=== PATIENT | male | born 1950 | race Caucasian/White ===

== ENCOUNTER → 2018-07-06 07:35 | Outpatient (CLI) | payer OTHER, SELFPAY ==
[2018-07-06 08:30] LABS: Add Manual Diff / Slide Review NO; Basophils Percent Auto 0.6 % (0-2); Eosinophils Percent Auto 5.4 % (2-4); Hematocrit 42.7 % (41-53); Hemoglobin 14.6 g/dL (13.5-17.5); Lymphocytes Percent Auto 24.6 % (25-40); Mean Corpuscular HGB Conc 34.1 % (30-36); Mean Corpuscular Hemoglobin 29.4 PG (26-34); Mean Corpuscular Volume 86.3 fL (80-100); Monocytes Percent Auto 7.9 % (3-14); Neutrophils Absolute Auto 4800 /uL (3000-5900); Neutrophils Percent Auto 61.5 % (50-75); Platelet Count 260 X10^3/uL (150-400); Red Blood Cell Count 4.95 X10^6/uL (4.5-5.9); Red Cell Distribution Width 13.5 % (11.6-14.8); White Blood Cell Count 7.8 X10^3/uL (4.5-11.0)
[2018-07-06 08:38] LABS: Alanine Aminotransferase 25 IU/L (21-72); Albumin 4.3 g/dL (3.5-5.0); Albumin Globulin Ratio 1.5 (1.0-2.8); Alkaline Phosphatase 25 U/L (38-126); Aspartate Aminotransferase 19 IU/L (17-59); BUN Creatinine Ratio 17.3 (6-22); Bilirubin Total 0.5 mg/dL (0.2-1.3); Blood Urea Nitrogen 19 mg/dL (9-20); Carbon Dioxide 27 mmol/L (22-32); Chloride 103 mmol/L (98-107); Cholesterol 163 mg/dL (140-199); Estimated Glomerular Filt Rate > 60.0 mL/min (>60); Globulin 2.9 g/dL (1.7-4.1); Glucose 90 mg/dL (80-110); HDL Cholesterol 49 mg/dL (40-60); HEMOLYSIS < 15 (0-50); LDL Cholesterol Calculated 102 mg/dL (<100); Potassium 4.3 mmol/L (3.4-5.1); Sodium 142 mmol/L (137-145); Total Protein 7.2 g/dL (6.3-8.2); Triglycerides 61 mg/dL (35-150)
[2018-07-06 10:06] LABS: TSH w/ Reflex to FT4 3.75 uIU/mL (0.47-4.68)
== END ==
PROVIDERS: PCP Internal Medicine; Visit Provider Internal Medicine
DX: E78.00 Pure hypercholesterolemia, unspecified (principal); I10 Essential (primary) hypertension; E03.9 Hypothyroidism, unspecified; K21.9 Gastro-esophageal reflux disease without esophagitis
CPT/HCPCS: 36415; 80053; 80061; 84153; 84443; 85025

== ENCOUNTER → 2019-02-04 08:01 | Outpatient (CLI) | payer OTHER, SELFPAY ==
[2019-02-04 08:58] LABS: Add Manual Diff / Slide Review NO; Basophils Absolute Auto 100 /uL (0-100); Eosinophils Absolute Auto 400 /uL (0-450); Eosinophils Percent Auto 5.6 % (2-4); Hematocrit 40.8 % (41-53); Lymphocytes Absolute Auto 1800 /uL (1100-4500); Lymphocytes Percent Auto 23.6 % (25-40); Mean Corpuscular HGB Conc 34.4 % (30-36); Mean Corpuscular Volume 87.1 fL (80-100); Monocytes Absolute Auto 600 /uL (0-900); Monocytes Percent Auto 7.7 % (3-14); Neutrophils Absolute Auto 4700 /uL (1500-7000); Neutrophils Percent Auto 62.1 % (50-75); Platelet Count 250 X10^3/uL (150-400); Red Blood Cell Count 4.69 X10^6/uL (4.5-5.9); White Blood Cell Count 7.6 X10^3/uL (4.5-11.0)
[2019-02-04 09:29] LABS: Alanine Aminotransferase 14 IU/L (21-72); Albumin 4.1 g/dL (3.5-5.0); Albumin Globulin Ratio 1.3 (1.0-2.8); Alkaline Phosphatase 22 U/L (38-126); Aspartate Aminotransferase 19 IU/L (17-59); Bilirubin Total 0.5 mg/dL (0.2-1.3); Blood Urea Nitrogen 19 mg/dL (9-20); Calcium 9.1 mg/dL (8.4-10.2); Carbon Dioxide 26 mmol/L (22-32); Chloride 108 mmol/L (98-107); Cholesterol 168 mg/dL (140-199); Estimated Glomerular Filt Rate > 60.0 mL/min (>60); Globulin 3.1 g/dL (1.7-4.1); Glucose 93 mg/dL (80-110); HDL Cholesterol 50 mg/dL (40-60); HEMOLYSIS < 15 (0-50); LDL Cholesterol Calculated 105 mg/dL (<100); Potassium 4.5 mmol/L (3.4-5.1); Sodium 141 mmol/L (137-145); Total Protein 7.2 g/dL (6.3-8.2); Triglycerides 65 mg/dL (35-150)
[2019-02-04 09:46] LABS: Vitamin D 25 Hydroxy (D3) 70.8 ng/mL (30.0-100.0)
[2019-02-04 10:01] LABS: TSH w/ Reflex to FT4 3.73 uIU/mL (0.47-4.68)
[2019-02-04 10:21] LABS: Hep C Virus Ab w/Reflex Quant NEGATIVE s/c (NEGATIVE)
== END ==
PROVIDERS: PCP Internal Medicine; Visit Provider Internal Medicine
DX: E78.00 Pure hypercholesterolemia, unspecified (principal); I10 Essential (primary) hypertension; Z00.01 Encounter for general adult medical examination with abnormal findings
CPT/HCPCS: 36415; 80053; 80061; 82306; 84443; 85025; 86803; G0103

== ENCOUNTER 2019-03-28 09:00 | Outpatient (RCR) | payer OTHER, SELFPAY ==
--- NOTE | 2019-02-07 11:41 | PT.OIE ---
Current Diagnoses Lateral epicondylitis, unspecified elbow (02/07/19) Provider Visit Care Team Role Provider Type Angel Saba MD Attending Provider Physician Primary Care Provider Specialty: Internal Medicine Address: [address] [place] [address], [facility] Email: Physical Therapy Initial Evaluation PT-OP-A Visit Information Start: 02/07/19 07:23 Freq: Status: Active Protocol: Document 02/07/19 07:30 AMB (Rec: 02/07/19 08:46 AMB [email or web address]) Out-Patient Physical Therapy Visit Information Visit Information Visit Type Initial Evaluation Visit Start Time 07:30 Visit Stop Time 08:15 Total Visit Minutes 45 Visit Number 1 PT-OP-B Current Condition Start: 02/07/19 07:23 Freq: Status: Active Protocol: Document 02/07/19 07:30 AMB (Rec: 02/07/19 08:46 AMB [email or web address]) Current Condition History of Current Condition Onset Date a few months Current Complaints R elbow/forearm pain especially with using mouse History of Current Condition Clarence reports he originally noticed pain in his forearm and elbow while at work at his sit stand desk. He now has a vertical mouse which is helping, but still has discomfort. He has been using a brace at work. Prior Functional Status Baseline Function- ADL's Independent Baseline Function- Mobility Independent Current Functional Impairments (Reported) Functional Limitations- ADL's pain with working and gripping activities Personal Factors Other Personal Factors That May Effect Previous frozen shoulder on Therapy/Recovery the left PT-OP-C Subjective Start: 02/07/19 07:23 Freq: Status: Active Protocol: Document 02/07/19 07:30 AMB (Rec: 02/07/19 08:46 AMB [email or web address]) Patient Questionnaires Quick Dash- Upper Extremity Quick Dash UE Score 23 Quick Dash UE Impairment 20 to 39% Impaired (Score 20- 39) OP-PT Pain Assessment Location Right Elbow Pain Location Details forearm and lateral elbow Intensity 2 Scale Used Numeric (1 - 10) PT-OP-F Manual Assessment Start: 02/07/19 07:23 Freq: Status: Active Protocol: Document 02/07/19 08:46 AMB (Rec: 02/07/19 08:59 AMB [email or web address]) Manual Assessments Soft Tissue Assessment Soft Tissue Mobility Assessment Tenderness over wrist exetensors PT-OP-J Posture/Palpation/Skin Start: 02/07/19 07:23 Freq: Status: Active Protocol: Document 02/07/19 08:46 AMB (Rec: 02/07/19 08:59 AMB [email or web address]) Posture Evaluation Comments Posture Comments forward shoulders PT-OP-K Range of Motion Start: 02/07/19 07:23 Freq: Status: Active Protocol: Document 02/07/19 08:46 AMB (Rec: 02/07/19 08:59 AMB [email or web address]) Elbow/Forearm Range of Motion Elbow/Forearm Right Passive ROM Testing Position Sitting Elbow Flexion (degrees) 140 Elbow Extension (degrees) 0 Elbow/Forearm ROM Limitations Comments Pain from 0-5 degrees of flexion Wrist Goniometric Range of Motion Wrist Right Flexion Active (degrees) 55 Extension Active (degrees) 50 Ulnar Deviation Active (degrees) 30 Radial Deviation Active (degrees) 20 Left Flexion Active (degrees) 55 Extension Active (degrees) 55 Ulnar Deviation Active (degrees) 30 Radial Deviation Active (degrees) 25 PT-OP-L Special Tests Start: 02/07/19 07:23 Freq: Status: Active Protocol: Document 02/07/19 08:46 AMB (Rec: 02/07/19 08:59 AMB [email or web address]) Special Tests Wrist/Hand Special Tests Medial Epicondylitis Test Results negative Lateral Epicondylitis Extended Test Results positive on R PT-OP-M Strength Start: 02/07/19 07:23 Freq: Status: Active Protocol: Document 02/07/19 08:46 AMB (Rec: 02/07/19 08:59 AMB [email or web address]) Elbow/Forearm Strength Elbow and Forearm Manual Muscle Testing Right Flexion (C6) 4+ Good+ Extension (C7) 5 Normal Pronation 4 Good Supination 4 Good Wrist Strength Wrist Manual Muscle Testing Right Flexion (C7) 4 Good Extension (C6) 3+ Fair+ Ulnar Deviation 4+ Good+ Radial Deviation 4+ Good+ Left Flexion (C7) 4+ Good+ Extension (C6) 4+ Good+ Ulnar Deviation 4+ Good+ Radial Deviation 4+ Good+ PT-OP-Q Treatments Start: 02/07/19 07:23 Freq: Status: Active Protocol: Document 02/07/19 08:46 AMB (Rec: 02/07/19 08:59 AMB [email or web address]) Therapeutic Exercises Sitting Exercises 1 Sitting Exercise Name wrist extensor stretch, straight elbow gentle Reps/Minutes 30x2 PT-OP-R Modalities Start: 02/07/19 07:23 Freq: Status: Active Protocol: Document 02/07/19 08:46 AMB (Rec: 02/07/19 08:59 AMB [email or web address]) Hot Pack/Cold Pack Treatment Ice Massage Location R wrist extensors/ lateral epicondyle Patient Position Sitting Treatment Duration (minutes) 5 Cold Pack Location R forearm Patient Position Sitting Treatment Duration (minutes) 10 PT-OP-T Assessment and Plan Start: 02/07/19 07:23 Freq: Status: Active Protocol: Document 02/07/19 07:30 AMB (Rec: 02/07/19 11:40 AMB [email or web address]) Physical Therapy Assessment Rehab Potential Rehabilitation Potential Good Evaluation Complexity Number of Personal Factors/Comorbidities 1-2 Number of Body Systems Impaired 1-2 Clinical Presentation at Evaluation Stable Impairments Impairments Activity Tolerance Pain Posture ROM Soft Tissue Mobility Strength Goals Two Impairment activity tolerance Short Term Goal (STG) Clarence will use his computer with good mechanics and ergonomic setup for 1 hour without an increase in forearm pain. STG Duration 4 weeks One Impairment strength Short Term Goal (STG) Clarence will improve his wrist strength to 4+/5 in all planes STG Duration 4 weeks Mcc Goal (LTG) Clarence will improve his strength so he can open a jar without elbow/forearm pain. LTG Duration 8 weeks Assessment Summary Assessment Clarence attends physical therapy due to lateral epicondylitis that flared up per his report of repetitive strain using his mouse at work. He has made some changes to his workstation, and was educated in further changes today. He denies any numbness tingling/ cervical symptoms, and has point specific pain to the lateral epicondyle and tightness and soreness over the wrist extensors, with weakness with wrist extension. He will benefit from physical therapy to address the above impairments. Physical Therapy Plan Frequency and Duration Frequency of Treatment 2x/Week Duration of Treatment 8 weeks Plan of Care Start Date 02/07/19 Plan of Care End Date 04/04/19 Therapeutic Interventions Therapeutic Interventions Aquatic Therapy Home Exercise Program Joint Mobilizations Manual Therapy Neuromuscular Re-education Self-Care/Home Management Therapeutic Activities Therapeutic Exercises Modalities Cold Pack/Ice Massage Electric Stimulation Iontophoresis Ultrasound Other Therapeutic Interventions iontophoresis with dexamethasone Next Visit Focus/Plan Next Note Type Treatment Note Next Visit Plan Manual therapy to improve wrist extensor flexibility, further education in workplace and home office setup to avoid repetitive strain, begin gentle forearm strengthening as tolerated, ice at end.
--- NOTE | 2019-02-07 11:45 | PT.OPPOC ---
Current Diagnoses Lateral epicondylitis, unspecified elbow (02/07/19) Provider Visit Care Team Role Provider Type Angel Saba MD Attending Provider Physician Primary Care Provider Specialty: Internal Medicine Address: [address] [place] [address], [id number] Email: Plan Of Care PT-OP-T Assessment and Plan Start: 02/07/19 07:23 Freq: Status: Active Protocol: Document 02/07/19 07:30 AMB (Rec: 02/07/19 11:40 AMB [email or web address]) Physical Therapy Assessment Rehab Potential Rehabilitation Potential Good Evaluation Complexity Number of Personal Factors/Comorbidities 1-2 Number of Body Systems Impaired 1-2 Clinical Presentation at Evaluation Stable Impairments Impairments Activity Tolerance Pain Posture ROM Soft Tissue Mobility Strength Goals Two Impairment activity tolerance Short Term Goal (STG) Clarence will use his computer with good mechanics and ergonomic setup for 1 hour without an increase in forearm pain. STG Duration 4 weeks One Impairment strength Short Term Goal (STG) Clarence will improve his wrist strength to 4+/5 in all planes STG Duration 4 weeks Longterm Goal (LTG) Clarence will improve his strength so he can open a jar without elbow/forearm pain. LTG Duration 8 weeks Assessment Summary Assessment Clarence attends physical therapy due to lateral epicondylitis that flared up per his report of repetetive strain using his mouse at work. He has made some changes to his workstation, and was educated in further changes today. He denies any numbness tingling/ cervical symptoms, and has point specific pain to the lateral epicondyle and tightness and soreness over the wrist extensors, with weakness with wrist extension. He will benefit from physical therapy to address the above impairments. Physical Therapy Plan Frequency and Duration Frequency of Treatment 2x/Week Duration of Treatment 8 weeks Plan of Care Start Date 02/07/19 Plan of Care End Date 04/04/19 Therapeutic Interventions Therapeutic Interventions Aquatic Therapy Home Exercise Program Joint Mobilizations Manual Therapy Neuromuscular Re-education Self-Care/Home Management Therapeutic Activities Therapeutic Exercises Modalities Cold Pack/Ice Massage Electric Stimulation Iontophoresis Ultrasound Other Therapeutic Interventions iontophoresis with dexamethasone Next Visit Focus/Plan Next Note Type Treatment Note Next Visit Plan Manual therapy to improve wrist extensor flexibility, further education in workplace and home office setup to avoid repetitive strain, begin gentle forearm strengthening as tolerated, ice at end. Plan of Care Dates Plan of Care Start Date 02/07/19 Plan of Care End Date 04/04/19 Please Sign and Return: I have reviewed this Plan of Care and certify that the skilled therapy services above are required to meet the patient?s needs. Physician Signature Date Printed Name and Credentials Clinical Instructor Signature Printed Name and Credentials
--- NOTE | 2019-02-11 14:23 | PT.OTN ---
Current Diagnoses Lateral epicondylitis, unspecified elbow (02/11/19) Physical Therapy Treatment Note PT-OP-A Visit Information Start: 02/07/19 07:23 Freq: Status: Active Protocol: Document 02/11/19 14:11 SAK (Rec: 02/11/19 14:23 SAK [email or web address]) Out-Patient Physical Therapy Visit Information Visit Information Visit Type Treatment Note Visit Start Time 09:30 Visit Stop Time 10:10 Total Visit Minutes 45 Visit Number 0 PT-OP-B Current Condition Start: 02/07/19 07:23 Freq: Status: Active Protocol: Document 02/07/19 07:30 AMB (Rec: 02/07/19 08:46 AMB [email or web address]) Current Condition History of Current Condition Onset Date a few months Current Complaints R elbow/forearm pain especially with using mouse History of Current Condition Clarence reports he originally noticed pain in his forearm and elbow while at work at his sit stand desk. He now has a vertical mouse which is helping, but still has discomfort. He has been using a brace at work. Prior Functional Status Baseline Function- ADL's Independent Baseline Function- Mobility Independent Current Functional Impairments (Reported) Functional Limitations- ADL's pain with working and gripping activities Personal Factors Other Personal Factors That May Effect Previous frozen shoulder on Therapy/Recovery the left PT-OP-C Subjective Start: 02/07/19 07:23 Freq: Status: Active Protocol: Document 02/11/19 14:11 SAK (Rec: 02/11/19 14:23 SAK [id number]) OP-PT Subjective Patient Comments Patient Comments Compliant to HEP, not icing. Maybe a little better. States he is trying to work on not overusing right UE. PT-OP-F Manual Assessment Start: 02/07/19 07:23 Freq: Status: Active Protocol: Document 02/07/19 08:46 AMB (Rec: 02/07/19 08:59 AMB [email or web address]) Manual Assessments Soft Tissue Assessment Soft Tissue Mobility Assessment Tenderness over wrist exetensors PT-OP-J Posture/Palpation/Skin Start: 02/07/19 07:23 Freq: Status: Active Protocol: Document 02/07/19 08:46 AMB (Rec: 02/07/19 08:59 AMB [email or web address]) Posture Evaluation Comments Posture Comments forward shoulders PT-OP-K Range of Motion Start: 02/07/19 07:23 Freq: Status: Active Protocol: Document 02/07/19 08:46 AMB (Rec: 02/07/19 08:59 AMB [email or web address]) Elbow/Forearm Range of Motion Elbow/Forearm Right Passive ROM Testing Position Sitting Elbow Flexion (degrees) 140 Elbow Extension (degrees) 0 Elbow/Forearm ROM Limitations Comments Pain from 0-5 degrees of flexion Wrist Goniometric Range of Motion Wrist Right Flexion Active (degrees) 55 Extension Active (degrees) 50 Ulnar Deviation Active (degrees) 30 Radial Deviation Active (degrees) 20 Left Flexion Active (degrees) 55 Extension Active (degrees) 55 Ulnar Deviation Active (degrees) 30 Radial Deviation Active (degrees) 25 PT-OP-L Special Tests Start: 02/07/19 07:23 Freq: Status: Active Protocol: Document 02/07/19 08:46 AMB (Rec: 02/07/19 08:59 AMB [email or web address]) Special Tests Wrist/Hand Special Tests Medial Epicondylitis Test Results negative Lateral Epicondylitis Extended Test Results positive on R PT-OP-M Strength Start: 02/07/19 07:23 Freq: Status: Active Protocol: Document 02/07/19 08:46 AMB (Rec: 02/07/19 08:59 AMB [email or web address]) Elbow/Forearm Strength Elbow and Forearm Manual Muscle Testing Right Flexion (C6) 4+ Good+ Extension (C7) 5 Normal Pronation 4 Good Supination 4 Good Wrist Strength Wrist Manual Muscle Testing Right Flexion (C7) 4 Good Extension (C6) 3+ Fair+ Ulnar Deviation 4+ Good+ Radial Deviation 4+ Good+ Left Flexion (C7) 4+ Good+ Extension (C6) 4+ Good+ Ulnar Deviation 4+ Good+ Radial Deviation 4+ Good+ PT-OP-Q Treatments Start: 02/07/19 07:23 Freq: Status: Active Protocol: Document 02/11/19 14:11 SAK (Rec: 02/11/19 14:23 SAK [id number]) Therapeutic Exercises Sitting Exercises 4 Sitting Exercise Name forearm prone/sup Resistance 1# 3 Sitting Exercise Name wrist flexion Resistance 1# Reps/Minutes 10x 2 Sitting Exercise Name wrist flexion AROM Reps/Minutes 10x Comments elbows bent, cues for form 1 Sitting Exercise Name wrist extensor stretch, straight elbow gentle Reps/Minutes 30x2 Manual Therapy Treatment Soft Tissue Mobilization wrist extensors Mobilization Type Myofascial Release Rolling Strumming Intensity/Depth Moderate Body Position Sitting Self-Care/Home Management Treatment Education Patient Education Home Exercise Program PT-OP-R Modalities Start: 02/07/19 07:23 Freq: Status: Active Protocol: Document 02/11/19 14:11 [facility] (Rec: 02/11/19 14:23 [facility] [id number]) Hot Pack/Cold Pack Treatment Ice Massage Location R wrist extensors/ lateral epicondyle Patient Position Sitting Treatment Duration (minutes) 5 Ultrasound Therapy Treatment Right Lateral Elbow Treatment Duration (minutes) 8 Patient Position Sitting Coupling Medium Ultrasound Gel Applicator Size (cm2) 2 Frequency Setting (mHz) 3 Mode Setting Pulsed Duty Cycle 50% Intensity Setting (w/cm2) 1.0 PT-OP-T Assessment and Plan Start: 02/07/19 07:23 Freq: Status: Active Protocol: Document 02/11/19 14:11 [facility] (Rec: 02/11/19 14:23 [facility] [id number]) Physical Therapy Assessment Goals Two Impairment activity tolerance Short Term Goal (STG) Clarence will use his computer with good mechanics and ergonomic setup for 1 hour without an increase in forearm pain. STG Duration 4 weeks One Impairment strength Short Term Goal (STG) Clarence will improve his wrist strength to 4+/5 in all planes STG Duration 4 weeks Long-Term Goal (LTG) Clarence will improve his strength so he can open a jar without elbow/forearm pain. LTG Duration 8 weeks Assessment Summary Assessment Patient performing wrist extensor stretch at home but hasn't been icing. Reviewed importance of icing and was given 3 Cortney cups to make ice cups for ice massage. Mod cues for correct form with ther ex, and further discussion of work ergonomics and decreasing overuse of right UE. Demonstrated good understanding. Physical Therapy Plan Frequency and Duration Frequency of Treatment 2x/Week Duration of Treatment 8 weeks Plan of Care Start Date 02/07/19 Plan of Care End Date 04/04/19 Therapeutic Interventions Therapeutic Interventions Aquatic Therapy Home Exercise Program Joint Mobilizations Manual Therapy Neuromuscular Re-education Self-Care/Home Management Therapeutic Activities Therapeutic Exercises Modalities Cold Pack/Ice Massage Electric Stimulation Iontophoresis Ultrasound Other Therapeutic Interventions iontophoresis with dexamethasone Next Visit Focus/Plan Next Note Type Treatment Note Next Visit Plan Manual therapy to improve wrist extensor flexibility, further education in workplace and home office setup to avoid repetetive strain, begin gentle forearm strengthening as tolerated, ice at end.
--- NOTE | 2019-02-25 08:17 | PT.OTN ---
Current Diagnoses Lateral epicondylitis, unspecified elbow (02/25/19) Physical Therapy Treatment Note PT-OP-A Visit Information Start: 02/07/19 07:23 Freq: Status: Active Protocol: Document 02/25/19 07:30 AMB (Rec: 02/25/19 08:17 AMB [email or web address]) Out-Patient Physical Therapy Visit Information Visit Information Visit Type Treatment Note Visit Start Time 07:30 Visit Stop Time 08:15 Total Visit Minutes 45 Visit Number 3 Number of CAT SITTER Visits 0 PT-OP-B Current Condition Start: 02/07/19 07:23 Freq: Status: Active Protocol: Document 02/07/19 07:30 AMB (Rec: 02/07/19 08:46 AMB [email or web address]) Current Condition History of Current Condition Onset Date a few months Current Complaints R elbow/forearm pain especially with using mouse History of Current Condition Clarence reports he originally noticed pain in his forearm and elbow while at work at his sit stand desk. He now has a vertical mouse which is helping, but still has discomfort. He has been using a brace at work. Prior Functional Status Baseline Function- ADL's Independent Baseline Function- Mobility Independent Current Functional Impairments (Reported) Functional Limitations- ADL's pain with working and gripping activities Personal Factors Other Personal Factors That May Effect Previous frozen shoulder on Therapy/Recovery the left PT-OP-C Subjective Start: 02/07/19 07:23 Freq: Status: Active Protocol: Document 02/25/19 07:30 AMB (Rec: 02/25/19 08:17 AMB [email or web address]) OP-PT Subjective Patient Comments Patient Comments Icing more and that is helping . Using 2# weight at home and that is maybe a bit heavy because it is sore afterwards. PT-OP-F Manual Assessment Start: 02/07/19 07:23 Freq: Status: Active Protocol: Document 02/07/19 08:46 AMB (Rec: 02/07/19 08:59 AMB [email or web address]) Manual Assessments Soft Tissue Assessment Soft Tissue Mobility Assessment Tenderness over wrist exetensors PT-OP-J Posture/Palpation/Skin Start: 02/07/19 07:23 Freq: Status: Active Protocol: Document 02/07/19 08:46 AMB (Rec: 02/07/19 08:59 AMB [email or web address]) Posture Evaluation Comments Posture Comments forward shoulders PT-OP-K Range of Motion Start: 02/07/19 07:23 Freq: Status: Active Protocol: Document 02/07/19 08:46 AMB (Rec: 02/07/19 08:59 AMB [email or web address]) Elbow/Forearm Range of Motion Elbow/Forearm Right Passive ROM Testing Position Sitting Elbow Flexion (degrees) 140 Elbow Extension (degrees) 0 Elbow/Forearm ROM Limitations Comments Pain from 0-5 degrees of flexion Wrist Goniometric Range of Motion Wrist Right Flexion Active (degrees) 55 Extension Active (degrees) 50 Ulnar Deviation Active (degrees) 30 Radial Deviation Active (degrees) 20 Left Flexion Active (degrees) 55 Extension Active (degrees) 55 Ulnar Deviation Active (degrees) 30 Radial Deviation Active (degrees) 25 PT-OP-L Special Tests Start: 02/07/19 07:23 Freq: Status: Active Protocol: Document 02/07/19 08:46 AMB (Rec: 02/07/19 08:59 AMB [email or web address]) Special Tests Wrist/Hand Special Tests Medial Epicondylitis Test Results negative Lateral Epicondylitis Extended Test Results positive on R PT-OP-M Strength Start: 02/07/19 07:23 Freq: Status: Active Protocol: Document 02/07/19 08:46 AMB (Rec: 02/07/19 08:59 AMB [email or web address]) Elbow/Forearm Strength Elbow and Forearm Manual Muscle Testing Right Flexion (C6) 4+ Good+ Extension (C7) 5 Normal Pronation 4 Good Supination 4 Good Wrist Strength Wrist Manual Muscle Testing Right Flexion (C7) 4 Good Extension (C6) 3+ Fair+ Ulnar Deviation 4+ Good+ Radial Deviation 4+ Good+ Left Flexion (C7) 4+ Good+ Extension (C6) 4+ Good+ Ulnar Deviation 4+ Good+ Radial Deviation 4+ Good+ PT-OP-Q Treatments Start: 02/07/19 07:23 Freq: Status: Active Protocol: Document 02/25/19 07:30 AMB (Rec: 02/25/19 08:17 AMB [email or web address]) Therapeutic Exercises Sitting Exercises 4 Sitting Exercise Name forearm prone/sup Resistance 1# Reps/Minutes 2x10 Comments tried t band but too much 3 Sitting Exercise Name wrist flexion Resistance 1# Reps/Minutes 10x 2 Sitting Exercise Name wrist flexion Resistance 1# Reps/Minutes 10x Comments elbows bent, cues for form 1 Sitting Exercise Name wrist extensor stretch, straight elbow gentle Reps/Minutes 30x2 Manual Therapy Treatment Soft Tissue Mobilization wrist extensors Mobilization Type Myofascial Release Rolling Strumming Intensity/Depth Moderate Body Position Sitting PT-OP-R Modalities Start: 02/07/19 07:23 Freq: Status: Active Protocol: Document 02/25/19 07:30 AMB (Rec: 02/25/19 08:17 AMB [email or web address]) Hot Pack/Cold Pack Treatment Ice Massage Location R wrist extensors/ lateral epicondyle Patient Position Sitting Treatment Duration (minutes) 5 Ultrasound Therapy Treatment Right Lateral Elbow Treatment Duration (minutes) 8 Patient Position Sitting Coupling Medium Ultrasound Gel Applicator Size (cm2) 2 Frequency Setting (mHz) 3 Mode Setting Pulsed Duty Cycle 50% Intensity Setting (w/cm2) 1.2 PT-OP-T Assessment and Plan Start: 02/07/19 07:23 Freq: Status: Active Protocol: Document 02/25/19 07:30 AMB (Rec: 02/25/19 08:17 AMB [email or web address]) Physical Therapy Assessment Assessment Summary Assessment Encouraged to use water bottle if 2# too heavy and t band not working well. Continued to discuss workstation, mouse setup Physical Therapy Plan Next Visit Focus/Plan Next Note Type Treatment Note Next Visit Plan Manual therapy to improve wrist extensor flexibility, further education in workplace and home office setup to avoid repetetive strain, begin gentle forearm strengthening as tolerated, ice at end.
--- NOTE | 2019-03-03 15:42 | PT.OTN ---
Current Diagnoses Lateral epicondylitis, unspecified elbow (03/03/19) Physical Therapy Treatment Note PT-OP-A Visit Information Start: 02/07/19 07:23 Freq: Status: Active Protocol: Document 03/03/19 08:15 AMB (Rec: 03/03/19 09:19 AMB [id number]) Out-Patient Physical Therapy Visit Information Visit Information Visit Type Treatment Note Visit Start Time 08:15 Visit Stop Time 09:00 Total Visit Minutes 45 Visit Number 4 Number of IT SUPPORT MANAGER Visits 0 PT-OP-B Current Condition Start: 02/07/19 07:23 Freq: Status: Active Protocol: Document 02/07/19 07:30 AMB (Rec: 02/07/19 08:46 AMB [email or web address]) Current Condition History of Current Condition Onset Date a few months Current Complaints R elbow/forearm pain especially with using mouse History of Current Condition Clarence reports he originally noticed pain in his forearm and elbow while at work at his sit stand desk. He now has a vertical mouse which is helping, but still has discomfort. He has been using a brace at work. Prior Functional Status Baseline Function- ADL's Independent Baseline Function- Mobility Independent Current Functional Impairments (Reported) Functional Limitations- ADL's pain with working and gripping activities Personal Factors Other Personal Factors That May Effect Previous frozen shoulder on Therapy/Recovery the left PT-OP-C Subjective Start: 02/07/19 07:23 Freq: Status: Active Protocol: Document 03/03/19 08:15 AMB (Rec: 03/03/19 09:19 AMB [id number]) OP-PT Subjective Patient Comments Patient Comments Pt is feeling a little better. PT-OP-F Manual Assessment Start: 02/07/19 07:23 Freq: Status: Active Protocol: Document 02/07/19 08:46 AMB (Rec: 02/07/19 08:59 AMB [email or web address]) Manual Assessments Soft Tissue Assessment Soft Tissue Mobility Assessment Tenderness over wrist exetensors PT-OP-J Posture/Palpation/Skin Start: 02/07/19 07:23 Freq: Status: Active Protocol: Document 02/07/19 08:46 AMB (Rec: 02/07/19 08:59 AMB [email or web address]) Posture Evaluation Comments Posture Comments forward shoulders PT-OP-K Range of Motion Start: 02/07/19 07:23 Freq: Status: Active Protocol: Document 02/07/19 08:46 AMB (Rec: 02/07/19 08:59 AMB [email or web address]) Elbow/Forearm Range of Motion Elbow/Forearm Right Passive ROM Testing Position Sitting Elbow Flexion (degrees) 140 Elbow Extension (degrees) 0 Elbow/Forearm ROM Limitations Comments Pain from 0-5 degrees of flexion Wrist Goniometric Range of Motion Wrist Right Flexion Active (degrees) 55 Extension Active (degrees) 50 Ulnar Deviation Active (degrees) 30 Radial Deviation Active (degrees) 20 Left Flexion Active (degrees) 55 Extension Active (degrees) 55 Ulnar Deviation Active (degrees) 30 Radial Deviation Active (degrees) 25 PT-OP-L Special Tests Start: 02/07/19 07:23 Freq: Status: Active Protocol: Document 02/07/19 08:46 AMB (Rec: 02/07/19 08:59 AMB [email or web address]) Special Tests Wrist/Hand Special Tests Medial Epicondylitis Test Results negative Lateral Epicondylitis Extended Test Results positive on R PT-OP-M Strength Start: 02/07/19 07:23 Freq: Status: Active Protocol: Document 02/07/19 08:46 AMB (Rec: 02/07/19 08:59 AMB [email or web address]) Elbow/Forearm Strength Elbow and Forearm Manual Muscle Testing Right Flexion (C6) 4+ Good+ Extension (C7) 5 Normal Pronation 4 Good Supination 4 Good Wrist Strength Wrist Manual Muscle Testing Right Flexion (C7) 4 Good Extension (C6) 3+ Fair+ Ulnar Deviation 4+ Good+ Radial Deviation 4+ Good+ Left Flexion (C7) 4+ Good+ Extension (C6) 4+ Good+ Ulnar Deviation 4+ Good+ Radial Deviation 4+ Good+ PT-OP-Q Treatments Start: 02/07/19 07:23 Freq: Status: Active Protocol: Document 03/03/19 08:15 AMB (Rec: 03/03/19 15:42 AMB [email or web address]) Therapeutic Exercises Sitting Exercises 4 Sitting Exercise Name forearm prone/sup Resistance 2# Reps/Minutes 2x10 2 Sitting Exercise Name wrist flexion Resistance 2# Reps/Minutes 10x 1 Sitting Exercise Name wrist extensor stretch, straight elbow gentle Reps/Minutes 30x2 Manual Therapy Treatment Soft Tissue Mobilization wrist extensors Mobilization Type Myofascial Release Rolling Strumming Intensity/Depth Moderate Body Position Sitting PT-OP-R Modalities Start: 02/07/19 07:23 Freq: Status: Active Protocol: Document 03/03/19 08:15 AMB (Rec: 03/03/19 15:42 AMB [email or web address]) Ultrasound Therapy Treatment Right Lateral Elbow Treatment Duration (minutes) 8 Patient Position Sitting Coupling Medium Ultrasound Gel Applicator Size (cm2) 2 Frequency Setting (mHz) 3 Mode Setting Pulsed Duty Cycle 50% Intensity Setting (w/cm2) 1.2 PT-OP-T Assessment and Plan Start: 02/07/19 07:23 Freq: Status: Active Protocol: Document 03/03/19 08:15 AMB (Rec: 03/03/19 15:42 AMB [email or web address]) Physical Therapy Assessment Assessment Summary Assessment Encouraged increase in weight for wrist flexion and forearm pron/sup, stay with water bottle for wrist extension. Physical Therapy Plan Next Visit Focus/Plan Next Note Type Treatment Note Next Visit Plan Manual therapy to improve wrist extensor flexibility, further education in workplace and home office setup to avoid repetetive strain, begin gentle forearm strengthening as tolerated, ice at end.
--- NOTE | 2019-03-10 13:26 | PT.OTN ---
Current Diagnoses Lateral epicondylitis, unspecified elbow (03/10/19) Physical Therapy Treatment Note PT-OP-A Visit Information Start: 02/07/19 07:23 Freq: Status: Active Protocol: Document 03/10/19 08:15 AMB (Rec: 03/10/19 09:04 AMB [id number]) Out-Patient Physical Therapy Visit Information Visit Information Visit Type Treatment Note Visit Start Time 08:15 Visit Stop Time 09:00 Total Visit Minutes 45 Visit Number 5 Number of SOFTWARE ENGINEER INTERN Visits 0 PT-OP-B Current Condition Start: 02/07/19 07:23 Freq: Status: Active Protocol: Document 02/07/19 07:30 AMB (Rec: 02/07/19 08:46 AMB [email or web address]) Current Condition History of Current Condition Onset Date a few months Current Complaints R elbow/forearm pain especially with using mouse History of Current Condition Clarence reports he originally noticed pain in his forearm and elbow while at work at his sit stand desk. He now has a vertical mouse which is helping, but still has discomfort. He has been using a brace at work. Prior Functional Status Baseline Function- ADL's Independent Baseline Function- Mobility Independent Current Functional Impairments (Reported) Functional Limitations- ADL's pain with working and gripping activities Personal Factors Other Personal Factors That May Effect Previous frozen shoulder on Therapy/Recovery the left PT-OP-C Subjective Start: 02/07/19 07:23 Freq: Status: Active Protocol: Document 03/10/19 08:15 AMB (Rec: 03/10/19 09:04 AMB [id number]) OP-PT Subjective Patient Comments Patient Comments Pt is continuing to feel better. PT-OP-F Manual Assessment Start: 02/07/19 07:23 Freq: Status: Active Protocol: Document 02/07/19 08:46 AMB (Rec: 02/07/19 08:59 AMB [email or web address]) Manual Assessments Soft Tissue Assessment Soft Tissue Mobility Assessment Tenderness over wrist exetensors PT-OP-J Posture/Palpation/Skin Start: 02/07/19 07:23 Freq: Status: Active Protocol: Document 02/07/19 08:46 AMB (Rec: 02/07/19 08:59 AMB [email or web address]) Posture Evaluation Comments Posture Comments forward shoulders PT-OP-K Range of Motion Start: 02/07/19 07:23 Freq: Status: Active Protocol: Document 02/07/19 08:46 AMB (Rec: 02/07/19 08:59 AMB [email or web address]) Elbow/Forearm Range of Motion Elbow/Forearm Right Passive ROM Testing Position Sitting Elbow Flexion (degrees) 140 Elbow Extension (degrees) 0 Elbow/Forearm ROM Limitations Comments Pain from 0-5 degrees of flexion Wrist Goniometric Range of Motion Wrist Right Flexion Active (degrees) 55 Extension Active (degrees) 50 Ulnar Deviation Active (degrees) 30 Radial Deviation Active (degrees) 20 Left Flexion Active (degrees) 55 Extension Active (degrees) 55 Ulnar Deviation Active (degrees) 30 Radial Deviation Active (degrees) 25 PT-OP-L Special Tests Start: 02/07/19 07:23 Freq: Status: Active Protocol: Document 02/07/19 08:46 AMB (Rec: 02/07/19 08:59 AMB [email or web address]) Special Tests Wrist/Hand Special Tests Medial Epicondylitis Test Results negative Lateral Epicondylitis Extended Test Results positive on R PT-OP-M Strength Start: 02/07/19 07:23 Freq: Status: Active Protocol: Document 02/07/19 08:46 AMB (Rec: 02/07/19 08:59 AMB [email or web address]) Elbow/Forearm Strength Elbow and Forearm Manual Muscle Testing Right Flexion (C6) 4+ Good+ Extension (C7) 5 Normal Pronation 4 Good Supination 4 Good Wrist Strength Wrist Manual Muscle Testing Right Flexion (C7) 4 Good Extension (C6) 3+ Fair+ Ulnar Deviation 4+ Good+ Radial Deviation 4+ Good+ Left Flexion (C7) 4+ Good+ Extension (C6) 4+ Good+ Ulnar Deviation 4+ Good+ Radial Deviation 4+ Good+ PT-OP-Q Treatments Start: 02/07/19 07:23 Freq: Status: Active Protocol: Document 03/10/19 08:15 AMB (Rec: 03/10/19 13:26 AMB [email or web address]) Therapeutic Exercises Sitting Exercises 4 Sitting Exercise Name forearm prone/sup Resistance 2# Reps/Minutes 2x10 3 Sitting Exercise Name wrist flexion Resistance 2# Reps/Minutes 20x 2 Sitting Exercise Name wrist extension Resistance 1# Reps/Minutes 10 1 Sitting Exercise Name wrist extensor stretch, straight elbow gentle Reps/Minutes 30x2 Manual Therapy Treatment Soft Tissue Mobilization wrist extensors Mobilization Type Myofascial Release Rolling Strumming Intensity/Depth Moderate Body Position Sitting Comments compression of wrist extensors with stretch PT-OP-R Modalities Start: 02/07/19 07:23 Freq: Status: Active Protocol: Document 03/03/19 08:15 AMB (Rec: 03/03/19 15:42 AMB [email or web address]) Ultrasound Therapy Treatment Right Lateral Elbow Treatment Duration (minutes) 8 Patient Position Sitting Coupling Medium Ultrasound Gel Applicator Size (cm2) 2 Frequency Setting (mHz) 3 Mode Setting Pulsed Duty Cycle 50% Intensity Setting (w/cm2) 1.2 PT-OP-T Assessment and Plan Start: 02/07/19 07:23 Freq: Status: Active Protocol: Document 03/10/19 08:15 AMB (Rec: 03/10/19 13:26 AMB [email or web address]) Physical Therapy Assessment Assessment Summary Assessment Clarence is going to look into a night splint for his wrist so it stays in neutral while he is sleeping. He feels that overall it is improving, and was able to better tolerate weights today. Physical Therapy Plan Next Visit Focus/Plan Next Note Type Treatment Note Next Visit Plan Manual therapy to improve wrist extensor flexibility, further education in workplace and home office setup to avoid repetetive strain, begin gentle forearm strengthening as tolerated, ice at end.
--- NOTE | 2019-03-14 15:47 | PT.OTN ---
Current Diagnoses Lateral epicondylitis, unspecified elbow (03/14/19) Physical Therapy Treatment Note PT-OP-A Visit Information Start: 02/07/19 07:23 Freq: Status: Active Protocol: Document 03/14/19 09:00 AMB (Rec: 03/17/19 15:46 AMB [email or web address]) Out-Patient Physical Therapy Visit Information Visit Information Visit Type Treatment Note Visit Start Time 08:18 Visit Stop Time 09:00 Total Visit Minutes 42 Visit Number 6 Number of FILAMENT WOUND PARTS FABRICATOR Visits 0 PT-OP-B Current Condition Start: 02/07/19 07:23 Freq: Status: Active Protocol: Document 02/07/19 07:30 AMB (Rec: 02/07/19 08:46 AMB [email or web address]) Current Condition History of Current Condition Onset Date a few months Current Complaints R elbow/forearm pain especially with using mouse History of Current Condition Clarence reports he originally noticed pain in his forearm and elbow while at work at his sit stand desk. He now has a vertical mouse which is helping, but still has discomfort. He has been using a brace at work. 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 PT-OP-F Manual Assessment Start: 02/07/19 07:23 Freq: Status: Active Protocol: Document 02/07/19 08:46 AMB (Rec: 02/07/19 08:59 AMB [email or web address]) Manual Assessments Soft Tissue Assessment Soft Tissue Mobility Assessment Tenderness over wrist exetensors PT-OP-J Posture/Palpation/Skin Start: 02/07/19 07:23 Freq: Status: Active Protocol: Document 02/07/19 08:46 AMB (Rec: 02/07/19 08:59 AMB [email or web address]) Posture Evaluation Comments Posture Comments forward shoulders PT-OP-K Range of Motion Start: 02/07/19 07:23 Freq: Status: Active Protocol: Document 02/07/19 08:46 AMB (Rec: 02/07/19 08:59 AMB [email or web address]) Elbow/Forearm Range of Motion Elbow/Forearm Right Passive ROM Testing Position Sitting Elbow Flexion (degrees) 140 Elbow Extension (degrees) 0 Elbow/Forearm ROM Limitations Comments Pain from 0-5 degrees of flexion Wrist Goniometric Range of Motion Wrist Right Flexion Active (degrees) 55 Extension Active (degrees) 50 Ulnar Deviation Active (degrees) 30 Radial Deviation Active (degrees) 20 Left Flexion Active (degrees) 55 Extension Active (degrees) 55 Ulnar Deviation Active (degrees) 30 Radial Deviation Active (degrees) 25 PT-OP-L Special Tests Start: 02/07/19 07:23 Freq: Status: Active Protocol: Document 02/07/19 08:46 AMB (Rec: 02/07/19 08:59 AMB [email or web address]) Special Tests Wrist/Hand Special Tests Medial Epicondylitis Test Results negative Lateral Epicondylitis Extended Test Results positive on R PT-OP-M Strength Start: 02/07/19 07:23 Freq: Status: Active Protocol: Document 02/07/19 08:46 AMB (Rec: 02/07/19 08:59 AMB [email or web address]) Elbow/Forearm Strength Elbow and Forearm Manual Muscle Testing Right Flexion (C6) 4+ Good+ Extension (C7) 5 Normal Pronation 4 Good Supination 4 Good Wrist Strength Wrist Manual Muscle Testing Right Flexion (C7) 4 Good Extension (C6) 3+ Fair+ Ulnar Deviation 4+ Good+ Radial Deviation 4+ Good+ Left Flexion (C7) 4+ Good+ Extension (C6) 4+ Good+ Ulnar Deviation 4+ Good+ Radial Deviation 4+ Good+ PT-OP-Q Treatments Start: 02/07/19 07:23 Freq: Status: Active Protocol: Document 03/14/19 09:00 AMB (Rec: 03/17/19 15:46 AMB [email or web address]) Therapeutic Exercises Sitting Exercises 4 Sitting Exercise Name forearm prone/sup Resistance 3# Reps/Minutes 2x10 3 Sitting Exercise Name wrist flexion Resistance 3# Reps/Minutes 20x 2 Sitting Exercise Name wrist extension Resistance 2# Reps/Minutes 10 1 Sitting Exercise Name wrist extensor stretch, straight elbow gentle Reps/Minutes 30x2 Manual Therapy Treatment Soft Tissue Mobilization wrist extensors Mobilization Type Myofascial Release Rolling Strumming Intensity/Depth Moderate Body Position Sitting Comments compression of wrist extensors with stretch PT-OP-R Modalities Start: 02/07/19 07:23 Freq: Status: Active Protocol: Document 03/03/19 08:15 AMB (Rec: 03/03/19 15:42 AMB [email or web address]) Ultrasound Therapy Treatment Right Lateral Elbow Treatment Duration (minutes) 8 Patient Position Sitting Coupling Medium Ultrasound Gel Applicator Size (cm2) 2 Frequency Setting (mHz) 3 Mode Setting Pulsed Duty Cycle 50% Intensity Setting (w/cm2) 1.2 PT-OP-T Assessment and Plan Start: 02/07/19 07:23 Freq: Status: Active Protocol: Document 03/14/19 09:00 AMB (Rec: 03/17/19 15:46 AMB [email or web address]) Physical Therapy Assessment Assessment Summary Assessment Tolerated increased weight with exercise without increased pain. Physical Therapy Plan Next Visit Focus/Plan Next Note Type Treatment Note Next Visit Plan Manual therapy to improve wrist extensor flexibility, further education in workplace and home office setup to avoid repetetive strain, begin gentle forearm strengthening as tolerated, ice at end.
--- NOTE | 2019-03-28 16:40 | PT.OTN ---
Current Diagnoses Lateral epicondylitis, unspecified elbow (03/28/19) Physical Therapy Treatment Note PT-OP-A Visit Information Start: 02/07/19 07:23 Freq: Status: Active Protocol: Document 03/28/19 09:00 AMB (Rec: 03/29/19 16:45 AMB [email or web address]) Out-Patient Physical Therapy Visit Information Visit Information Visit Type Discharge Summary Visit Start Time 09:00 Visit Stop Time 09:40 Total Visit Minutes 40 Visit Number 7 PT-OP-B Current Condition Start: 02/07/19 07:23 Freq: Status: Active Protocol: Document 02/07/19 07:30 AMB (Rec: 02/07/19 08:46 AMB [email or web address]) Current Condition History of Current Condition Onset Date a few months Current Complaints R elbow/forearm pain especially with using mouse History of Current Condition Clarence reports he originally noticed pain in his forearm and elbow while at work at his sit stand desk. He now has a vertical mouse which is helping, but still has discomfort. He has been using a brace at work. Prior Functional Status Baseline Function- ADL's Independent Baseline Function- Mobility Independent Current Functional Impairments (Reported) Functional Limitations- ADL's pain with working and gripping activities Personal Factors Other Personal Factors That May Effect Previous frozen shoulder on Therapy/Recovery the left PT-OP-C Subjective Start: 02/07/19 07:23 Freq: Status: Active Protocol: Document 03/28/19 09:00 AMB (Rec: 03/29/19 16:45 AMB [email or web address]) OP-PT Subjective Patient Comments Patient Comments Clarence was able to lift boxes with his brace without too much difficulty, he continues to have symptoms if he uses the mouse for too long without the brace, but overall the intensity of the pain is much less. PT-OP-F Manual Assessment Start: 02/07/19 07:23 Freq: Status: Active Protocol: Document 02/07/19 08:46 AMB (Rec: 02/07/19 08:59 AMB [email or web address]) Manual Assessments Soft Tissue Assessment Soft Tissue Mobility Assessment Tenderness over wrist exetensors PT-OP-J Posture/Palpation/Skin Start: 02/07/19 07:23 Freq: Status: Active Protocol: Document 02/07/19 08:46 AMB (Rec: 02/07/19 08:59 AMB [email or web address]) Posture Evaluation Comments Posture Comments forward shoulders PT-OP-K Range of Motion Start: 02/07/19 07:23 Freq: Status: Active Protocol: Document 02/07/19 08:46 AMB (Rec: 02/07/19 08:59 AMB [email or web address]) Elbow/Forearm Range of Motion Elbow/Forearm Right Passive ROM Testing Position Sitting Elbow Flexion (degrees) 140 Elbow Extension (degrees) 0 Elbow/Forearm ROM Limitations Comments Pain from 0-5 degrees of flexion Wrist Goniometric Range of Motion Wrist Right Flexion Active (degrees) 55 Extension Active (degrees) 50 Ulnar Deviation Active (degrees) 30 Radial Deviation Active (degrees) 20 Left Flexion Active (degrees) 55 Extension Active (degrees) 55 Ulnar Deviation Active (degrees) 30 Radial Deviation Active (degrees) 25 PT-OP-L Special Tests Start: 02/07/19 07:23 Freq: Status: Active Protocol: Document 02/07/19 08:46 AMB (Rec: 02/07/19 08:59 AMB [email or web address]) Special Tests Wrist/Hand Special Tests Medial Epicondylitis Test Results negative Lateral Epicondylitis Extended Test Results positive on R PT-OP-M Strength Start: 02/07/19 07:23 Freq: Status: Active Protocol: Document 02/07/19 08:46 AMB (Rec: 02/07/19 08:59 AMB [email or web address]) Elbow/Forearm Strength Elbow and Forearm Manual Muscle Testing Right Flexion (C6) 4+ Good+ Extension (C7) 5 Normal Pronation 4 Good Supination 4 Good Wrist Strength Wrist Manual Muscle Testing Right Flexion (C7) 4 Good Extension (C6) 3+ Fair+ Ulnar Deviation 4+ Good+ Radial Deviation 4+ Good+ Left Flexion (C7) 4+ Good+ Extension (C6) 4+ Good+ Ulnar Deviation 4+ Good+ Radial Deviation 4+ Good+ PT-OP-Q Treatments Start: 02/07/19 07:23 Freq: Status: Active Protocol: Document 03/28/19 09:00 AMB (Rec: 03/28/19 09:50 AMB [id number]) Therapeutic Exercises Sitting Exercises 5 Sitting Exercise Name gripping with theraputty Comments red 4 Sitting Exercise Name forearm prone/sup Reps/Minutes 2x10 Comments hammer 3 Sitting Exercise Name wrist flexion Resistance 3# Reps/Minutes 20x 2 Sitting Exercise Name wrist extension Resistance 2# Reps/Minutes 10 1 Sitting Exercise Name wrist extensor stretch, straight elbow gentle Reps/Minutes 30x2 Standing Exercises 1 Standing Exercise Name shoulder ER Resistance #2 t band Reps/Minutes 10 Comments vc for wrist neutral PT-OP-R Modalities Start: 02/07/19 07:23 Freq: Status: Active Protocol: Document 03/03/19 08:15 AMB (Rec: 03/03/19 15:42 AMB [email or web address]) Ultrasound Therapy Treatment Right Lateral Elbow Treatment Duration (minutes) 8 Patient Position Sitting Coupling Medium Ultrasound Gel Applicator Size (cm2) 2 Frequency Setting (mHz) 3 Mode Setting Pulsed Duty Cycle 50% Intensity Setting (w/cm2) 1.2 PT-OP-T Assessment and Plan Start: 02/07/19 07:23 Freq: Status: Active Protocol: Document 03/28/19 09:00 AMB (Rec: 03/28/19 09:06 AMB [id number]) Physical Therapy Assessment Goals Two Impairment activity tolerance Short Term Goal (STG) Clarence will use his computer with good mechanics and ergonomic setup for 1 hour without an increase in forearm pain. STG Duration MET One Impairment strength Short Term Goal (STG) Clarence will improve his wrist strength to 4+/5 in all planes STG Duration PROGRESS MADE Half-Way Goal (LTG) Clarence will improve his strength so he can open a jar without elbow/forearm pain. LTG Duration MET Assessment Summary Assessment 35# on the R, 47.5 on L with spare fixer strength today. Clarence has met the majority of his goals in PT. While his strength is not equal to the left yet, he has decreased the intensity of his pain. He will need to continue his HEP to continue to strengthen his forearm, and will likely continue to need to use his brace when lifting and at work for at least another month. Physical Therapy Plan Discharge Physical Therapy Discharge Reasons Goals Met
--- NOTE | 2019-03-30 16:41 | PT.OPDS ---
Current Diagnoses Lateral epicondylitis, unspecified elbow (03/28/19) Visit Care Team Role Provider Type Angel Saba MD Attending Provider Physician Primary Care Provider Specialty: Internal Medicine Address: [address] [place] [address], [facility] Email: [email or web address] Visit Number Visit Number 7 Discharge Summary PT-OP-B Current Condition Start: 02/07/19 07:23 Freq: Status: Active Protocol: Document 02/07/19 07:30 AMB (Rec: 02/07/19 08:46 AMB [email or web address]) Current Condition History of Current Condition Onset Date a few months Current Complaints R elbow/forearm pain especially with using mouse History of Current Condition Clarence reports he originally noticed pain in his forearm and elbow while at work at his sit stand desk. He now has a vertical mouse which is helping, but still has discomfort. He has been using a brace at work. Prior Functional Status Baseline Function- ADL's Independent Baseline Function- Mobility Independent Current Functional Impairments (Reported) Functional Limitations- ADL's pain with working and gripping activities Personal Factors Other Personal Factors That May Effect Previous frozen shoulder on Therapy/Recovery the left PT-OP-C Subjective Start: 02/07/19 07:23 Freq: Status: Active Protocol: Document 03/28/19 09:00 AMB (Rec: 03/29/19 16:45 AMB [email or web address]) OP-PT Subjective Patient Comments Patient Comments Clarence was able to lift boxes with his brace without too much difficulty, he continues to have symptoms if he uses the mouse for too long without the brace, but overall the intensity of the pain is much less. PT-OP-F Manual Assessment Start: 02/07/19 07:23 Freq: Status: Active Protocol: Document 02/07/19 08:46 AMB (Rec: 02/07/19 08:59 AMB [email or web address]) Manual Assessments Soft Tissue Assessment Soft Tissue Mobility Assessment Tenderness over wrist exetensors PT-OP-J Posture/Palpation/Skin Start: 02/07/19 07:23 Freq: Status: Active Protocol: Document 02/07/19 08:46 AMB (Rec: 02/07/19 08:59 AMB [email or web address]) Posture Evaluation Comments Posture Comments forward shoulders PT-OP-K Range of Motion Start: 02/07/19 07:23 Freq: Status: Active Protocol: Document 02/07/19 08:46 AMB (Rec: 02/07/19 08:59 AMB [email or web address]) Elbow/Forearm Range of Motion Elbow/Forearm Right Passive ROM Testing Position Sitting Elbow Flexion (degrees) 140 Elbow Extension (degrees) 0 Elbow/Forearm ROM Limitations Comments Pain from 0-5 degrees of flexion Wrist Goniometric Range of Motion Wrist Right Flexion Active (degrees) 55 Extension Active (degrees) 50 Ulnar Deviation Active (degrees) 30 Radial Deviation Active (degrees) 20 Left Flexion Active (degrees) 55 Extension Active (degrees) 55 Ulnar Deviation Active (degrees) 30 Radial Deviation Active (degrees) 25 PT-OP-L Special Tests Start: 02/07/19 07:23 Freq: Status: Active Protocol: Document 02/07/19 08:46 AMB (Rec: 02/07/19 08:59 AMB [email or web address]) Special Tests Wrist/Hand Special Tests Medial Epicondylitis Test Results negative Lateral Epicondylitis Extended Test Results positive on R PT-OP-M Strength Start: 02/07/19 07:23 Freq: Status: Active Protocol: Document 02/07/19 08:46 AMB (Rec: 02/07/19 08:59 AMB [email or web address]) Elbow/Forearm Strength Elbow and Forearm Manual Muscle Testing Right Flexion (C6) 4+ Good+ Extension (C7) 5 Normal Pronation 4 Good Supination 4 Good Wrist Strength Wrist Manual Muscle Testing Right Flexion (C7) 4 Good Extension (C6) 3+ Fair+ Ulnar Deviation 4+ Good+ Radial Deviation 4+ Good+ Left Flexion (C7) 4+ Good+ Extension (C6) 4+ Good+ Ulnar Deviation 4+ Good+ Radial Deviation 4+ Good+ PT-OP-T Assessment and Plan Start: 02/07/19 07:23 Freq: Status: Active Protocol: Document 03/28/19 09:00 AMB (Rec: 03/28/19 09:06 AMB [id number]) Physical Therapy Assessment Goals Two Impairment activity tolerance Short Term Goal (STG) Clarence will use his computer with good mechanics and ergonomic setup for 1 hour without an increase in forearm pain. STG Duration MET One Impairment strength Short Term Goal (STG) Clarence will improve his wrist strength to 4+/5 in all planes STG Duration [employer] Work[employer] Goal (LTG) Clarence will improve his strength so he can open a jar without elbow/forearm pain. 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 Clarence has met the majority of his goals in PT. While his strength is not equal to the left yet, he has decreased the intensity of his pain. He will need to continue his HEP to continue to strengthen his forearm, and will likely continue to need to use his brace when lifting and at work for at least another month. Physical Therapy Plan Discharge Physical Therapy Discharge Reasons Goals Met
== END 2019-04-01 08:33 | disposition home or self-care (01) ==
LOC: PHYS 09:00
PROVIDERS: PCP Internal Medicine; Visit Provider Internal Medicine
DX: M77.10 Lateral epicondylitis, unspecified elbow (principal)
CPT/HCPCS: 97035; 97110; 97140; 97161; 97535

== ENCOUNTER → 2020-03-03 08:10 | Outpatient (CLI) | payer OTHER, SELFPAY ==
[2020-03-03 09:00] LABS: Add Manual Diff / Slide Review NO; Basophils Absolute Auto 100 /uL (0-100); Basophils Percent Auto 0.9 % (0-2); Eosinophils Absolute Auto 400 /uL (0-450); Eosinophils Percent Auto 5.5 % (2-4); Hematocrit 40.7 % (41-53); Lymphocytes Absolute Auto 1800 /uL (1100-4500); Lymphocytes Percent Auto 27.2 % (25-40); Mean Corpuscular HGB Conc 34.3 % (30-36); Mean Corpuscular Hemoglobin 29.7 PG (26-34); Mean Corpuscular Volume 86.4 fL (80-100); Monocytes Absolute Auto 600 /uL (0-900); Monocytes Percent Auto 9.3 % (3-14); Neutrophils Absolute Auto 3700 /uL (1500-7000); Neutrophils Percent Auto 57.1 % (50-75); Platelet Count 229 X10^3/uL (150-400); Red Blood Cell Count 4.71 X10^6/uL (4.5-5.9); Red Cell Distribution Width 13.3 % (11.6-14.8); White Blood Cell Count 6.5 X10^3/uL (4.5-11.0)
[2020-03-03 09:16] LABS: Alanine Aminotransferase 22 IU/L (<50); Albumin 4.2 g/dL (3.5-5.0); Albumin Globulin Ratio 1.5 (1.0-2.8); Alkaline Phosphatase 26 U/L (38-126); Aspartate Aminotransferase 24 IU/L (17-59); BUN Creatinine Ratio 15.1 (6-22); Bilirubin Total 0.6 mg/dL (0.2-1.3); Blood Urea Nitrogen 16 mg/dL (9-20); Calcium 9.3 mg/dL (8.4-10.2); Carbon Dioxide 28 mmol/L (22-32); Chloride 106 mmol/L (98-107); Cholesterol 148 mg/dL (140-199); Estimated Glomerular Filt Rate > 60.0 mL/min (>60); Globulin 2.8 g/dL (1.7-4.1); Glucose 94 mg/dL (80-110); HDL Cholesterol 47 mg/dL (40-60); HEMOLYSIS < 15 (0-50); LDL Cholesterol Calculated 88 mg/dL (<100); Potassium 4.8 mmol/L (3.4-5.1); Sodium 139 mmol/L (137-145); Triglycerides 66 mg/dL (35-150)
[2020-03-03 09:44] LABS: Prostate Specific Antigen Scrn 0.897 ng/mL (0.1-4.0)
[2020-03-03 09:57] LABS: TSH w/ Reflex to FT4 6.54 uIU/mL (0.47-4.68)
[2020-03-03 10:24] LABS: Free T4, Direct Thyroxine 0.92 ng/dL (0.78-2.19)
== END ==
PROVIDERS: PCP Internal Medicine; Referring Provider Internal Medicine; Visit Provider Internal Medicine
DX: E78.00 Pure hypercholesterolemia, unspecified (principal); K21.9 Gastro-esophageal reflux disease without esophagitis; I10 Essential (primary) hypertension; E03.9 Hypothyroidism, unspecified; Z12.5 Encounter for screening for malignant neoplasm of prostate
CPT/HCPCS: 36415; 80053; 80061; 84439; 84443; 85025; G0103

== ENCOUNTER → 2020-06-13 07:40 | Outpatient (CLI) | payer OTHER, SELFPAY ==
[2020-06-13 11:13] LABS: Free T4, Direct Thyroxine 1.11 ng/dL (0.78-2.19)
[2020-06-13 11:27] LABS: Thyroid Stimulating Hormone 2.22 uIU/mL (0.47-4.68)
== END ==
PROVIDERS: PCP Internal Medicine; Referring Provider Internal Medicine; Visit Provider Internal Medicine
DX: E03.9 Hypothyroidism, unspecified (principal)
CPT/HCPCS: 36415; 84439; 84443

== ENCOUNTER → 2020-10-01 13:32 | Outpatient (CLI) | payer OTHER, SELFPAY ==
[2020-10-01 16:03] LABS: COVID19 -Nasal RAPID Negative (Negative)
== END ==
PROVIDERS: PCP Internal Medicine; Visit Provider Nurse Practitioner
DX: Z01.812 Encounter for preprocedural laboratory examination (principal); Z20.822 Contact with and (suspected) exposure to COVID-19
CPT/HCPCS: 87635

== ENCOUNTER 2020-10-02 06:37 | Day surgery (SDC) | payer OTHER, SELFPAY ==
[2020-10-02] MEDS: PROPARACAINE 0.5% OPHTH SOL 2 DROPS EYE-OP (07:09)
[2020-10-02] MEDS: CATARACT EYE COMPOUND (10 DROPS/SYRINGE) 3 DROPS EYE-OP (07:10)
[2020-10-02 07:13] VITALS: BP 119/77; PULSE 75; RESP 18; TEMP 36.7; O2SAT 100
[2020-10-02 07:15] VITALS: BMI 22.8
--- NOTE | 2020-10-02 07:33 | P.OP_ITS ---
Operative Date/Time/Diagnoses Pre-op diagnosis: Nuclear Cataract Left eye Post-op diagnosis: same Procedure & Clinicians Same procedure as scheduled: Yes Surgeon: Sage Sadler Anesthesia Type: MAC +/- and Sedation Operative Notes Procedure in detail: Patient brought to the operating suite. Tetracaine drops placed in the left eye. Patient was prepped and draped in sterile manner. Wire lid speculum was placed in the eye. Betadine drops were placed on the eye. This was irrigated. Lidocaine jelly was placed on the eye. A paracentesis port was created with a side-port blade. 0.1 mL 1% preservative free lidocaine was injected into the anterior chamber. The anterior chamber was deepened with viscoelastic. 2.6 mm keratome was used to create a temporal clear corneal incision. Cystotome and Utrata forceps were used to create continuous tear capsulorrhexis. Balanced salt solution was used to hydro dissect the nucleus. The phacoemulsification handpiece was inserted and the nucleus was removed using the stop and chop technique. The irrigation aspiration handpiece was inserted and the remaining cortex was removed. Anterior chamber was deepened with viscoe lastic. An Morris ZCB00 intraocular lens with a power of 18.5 was injected into the capsular bag. Irrigation aspiration handpiece was inserted and the remaining viscoelastic was removed. Incision was hydrated with balanced salt solution and found to be leak free with pressure with Weck-Dulce sponges. 0.1 mL Vigamox injected anterior chamber. 0.3 mL Kenalog 10 mg was injected subconjunctivally. Lid speculum was removed. The patient left the operating room in excellent condition. Complications: none Post-operative Condition: stable Disposition: same day surgery
--- NOTE | 2020-10-02 07:33 | PM.PREOP ---
Pre-operative Note Interval Note History & Physical reviewed/Exam performed by Physician: Yes Changes to H&P: No
[2020-10-02] MEDS: MOXIFLOXACIN INJ 5 MG/ML VIAL EYE-OP (07:51)
[2020-10-02] MEDS: CHONDROIDTIN/SOD HYALURONATE 1.05 ML SYRINGE INTRAOCULA (07:51)
[2020-10-02] MEDS: LIDOCAINE JELLY 2% 5 ML 1 APPLIC TOP (07:51)
[2020-10-02] MEDS: PHENYLEPHRINE/LIDOCAINE VIAL (OR) 0.2 ML EYE-OP (07:51)
[2020-10-02] MEDS: TRIAMCINOLONE 50 MG/5 ML VIAL INJ (07:52)
[2020-10-02] MEDS: TETRACAINE 0.5% OPHTH DROPS 4 ML 2 DROPS EYE-OP (07:52)
[2020-10-02] MEDS: BALANCED SALT IRRIG SOLN NO.2 500 ML, EPINEPHrine 1 MG IRR (07:52)
[2020-10-02 08:09] VITALS: BP 95/54; PULSE 66; RESP 16; TEMP 36.2; O2SAT 100
--- NOTE | 2020-10-02 08:16 | SUR.PHASEII ---
Recheck of blood pressure is 91/63. Patient states that he is very relaxed and denies nausea or dizziness. Skin is pink, warm and dry. Called to arrange discharge pickup. No answer at this time.
[2020-10-02 08:32] VITALS: BP 99/61
--- NOTE | 2020-10-02 08:32 | SUR.PHASEII ---
Recheck of bp is 99/61. Discharged patient in stable condition. Asymptomatic.
== END 2020-10-02 08:33 | disposition home or self-care (01) ==
PROVIDERS: PCP Internal Medicine; Referring Provider Internal Medicine; Visit Provider Ophthalmology
PROC: (CPT 66984; principal; 2020-10-02 07:45)
DX: H25.12 Age-related nuclear cataract, left eye (principal); E78.00 Pure hypercholesterolemia, unspecified; I10 Essential (primary) hypertension
CPT/HCPCS: 66984; J0171; J2250; J3301

== ENCOUNTER → 2020-10-15 14:13 | Outpatient (CLI) | payer OTHER, SELFPAY ==
[2020-10-15 16:06] LABS: COVID19 -Nasal RAPID Negative (Negative)
== END ==
PROVIDERS: PCP Internal Medicine; Visit Provider Physician Assistant
DX: Z20.822 Contact with and (suspected) exposure to COVID-19 (principal)
CPT/HCPCS: 87635

== ENCOUNTER 2020-10-16 06:34 | Day surgery (SDC) | payer OTHER, SELFPAY ==
[2020-10-16] MEDS: PROPARACAINE 0.5% OPHTH SOL 2 DROPS EYE-OP (07:08)
[2020-10-16] MEDS: CATARACT EYE COMPOUND (10 DROPS/SYRINGE) 3 DROPS EYE-OP (07:11)
[2020-10-16 07:13] VITALS: BP 128/72; PULSE 64; RESP 14; TEMP 36.8; O2SAT 100
--- NOTE | 2020-10-16 07:38 | PM.PREOP ---
Pre-operative Note Interval Note History & Physical reviewed/Exam performed by Physician: Yes Changes to H&P: No
--- NOTE | 2020-10-16 07:38 | PM.OP.1 ---
Operative Date/Time/Diagnoses Pre-op diagnosis: Nuclear cataract right eye Procedure & Clinicians Procedure: Cataract Surgery Same procedure as scheduled: Yes Surgeon: Sage Sadler Anesthesia Type: MAC +/- and Sedation Operative Notes Procedure in detail: Patient brought to the operating suite. Tetracaine drops placed in the right eye. Patient was prepped and draped in sterile manner. Wire lid speculum was placed in the eye. Betadine drops were placed on the eye. This was irrigated. Lidocaine jelly was placed on the eye. A paracentesis port was created with a side-port blade. 0.1 mL 1% preservative free lidocaine was injected into the anterior chamber. The anterior chamber was deepened with viscoelastic. 2.6 mm keratome was used to create a temporal clear corneal incision. Cystotome and Utrata forceps were used to create continuous tear capsulorrhexis. Balanced salt solution was used to hydro dissect the nucleus. The phacoemulsification handpiece was inserted and the nucleus was removed using the stop and chop technique. The irrigation aspiration handpiece was inserted and the remaining cortex was removed. Anterior chamber was deepened with viscoelastic. An Morris ZCB00 intraocular lens with a power of 18.5 was injected into the capsular bag. Irrigation aspiration handpiece was inserted and the remaining viscoelastic was removed. Incision was hydrated with balanced salt solution and found to be leak free with pressure with Weck-Dulce sponges. 0.1 mL Vigamox injected anterior chamber. 0.3 mL Kenalog 10 mg was injected subconjunctivally. Lid speculum was removed. The patient left the operating room in excellent condition. Complications: none Post-operative Condition: stable Disposition: same day surgery
[2020-10-16] MEDS: LIDOCAINE JELLY 2% 5 ML 1 APPLIC TOP (07:50)
[2020-10-16] MEDS: CHONDROIDTIN/SOD HYALURONATE 1.05 ML SYRINGE INTRAOCULA (07:50)
[2020-10-16] MEDS: MOXIFLOXACIN INJ 5 MG/ML VIAL EYE-OP (07:50)
[2020-10-16] MEDS: PHENYLEPHRINE/LIDOCAINE VIAL (OR) 0.2 ML EYE-OP (07:51)
[2020-10-16] MEDS: TRIAMCINOLONE 50 MG/5 ML VIAL INJ (07:51)
[2020-10-16] MEDS: BALANCED SALT IRRIG SOLN NO.2 500 ML, EPINEPHrine 1 MG IRR (07:51)
[2020-10-16] MEDS: TETRACAINE 0.5% OPHTH DROPS 4 ML 2 DROPS EYE-OP (07:51)
[2020-10-16 08:03] VITALS: BP 97/62; PULSE 56; RESP 12; TEMP 37; O2SAT 99
== END 2020-10-16 08:19 | disposition home or self-care (01) ==
LOC: OR 06:36
PROVIDERS: PCP Internal Medicine; Referring Provider Internal Medicine; Visit Provider Ophthalmology
PROC: (CPT 66984; principal; 2020-10-16 07:45)
DX: H25.11 Age-related nuclear cataract, right eye (principal); I10 Essential (primary) hypertension; E78.5 Hyperlipidemia, unspecified; E03.9 Hypothyroidism, unspecified
CPT/HCPCS: 66984; J0171; J2250; J3010; J3301

== ENCOUNTER → 2020-11-17 08:18 | Outpatient (CLI) | payer OTHER, SELFPAY ==
[2020-11-17 09:15] LABS: Add Manual Diff / Slide Review NO; Basophils Absolute Auto 100 /uL (0-100); Basophils Percent Auto 0.7 % (0-2); Eosinophils Absolute Auto 500 /uL (0-450); Eosinophils Percent Auto 6.4 % (2-4); Hematocrit 41.7 % (41-53); Lymphocytes Absolute Auto 1900 /uL (1100-4500); Lymphocytes Percent Auto 24.3 % (25-40); Mean Corpuscular HGB Conc 33.6 % (30-36); Mean Corpuscular Hemoglobin 29.1 PG (26-34); Mean Corpuscular Volume 86.7 fL (80-100); Monocytes Absolute Auto 600 /uL (0-900); Monocytes Percent Auto 7.6 % (3-14); Neutrophils Absolute Auto 4800 /uL (1500-7000); Platelet Count 291 X10^3/uL (150-400); Red Blood Cell Count 4.81 X10^6/uL (4.5-5.9); Red Cell Distribution Width 13.5 % (11.6-14.8); White Blood Cell Count 7.8 X10^3/uL (4.5-11.0)
[2020-11-17 09:26] LABS: Alanine Aminotransferase 19 IU/L (<50); Albumin 4.3 g/dL (3.5-5.0); Albumin Globulin Ratio 1.5 (1.0-2.8); Alkaline Phosphatase 23 U/L (38-126); Aspartate Aminotransferase 24 IU/L (17-59); BUN Creatinine Ratio 17.9 (6-22); Bilirubin Total 0.3 mg/dL (0.2-1.3); Blood Urea Nitrogen 22 mg/dL (9-20); Calcium 9.5 mg/dL (8.4-10.2); Carbon Dioxide 28 mmol/L (22-32); Chloride 105 mmol/L (98-107); Cholesterol 159 mg/dL (140-199); Estimated Glomerular Filt Rate 58.3 mL/min (>60); Globulin 2.9 g/dL (1.7-4.1); Glucose 95 mg/dL (80-110); HDL Cholesterol 49 mg/dL (40-60); HEMOLYSIS < 15 (0-50); LDL Cholesterol Calculated 100 mg/dL (<100); Sodium 141 mmol/L (137-145); Total Protein 7.2 g/dL (6.3-8.2); Triglycerides 49 mg/dL (35-150)
[2020-11-17 09:56] LABS: Prostate Specific Antigen Scrn 1.31 ng/mL (0.1-4.0)
[2020-11-17 09:57] LABS: TSH w/ Reflex to FT4 1.59 uIU/mL (0.47-4.68)
== END ==
PROVIDERS: PCP Internal Medicine; Referring Provider Internal Medicine; Visit Provider Internal Medicine
DX: E78.00 Pure hypercholesterolemia, unspecified (principal); K21.9 Gastro-esophageal reflux disease without esophagitis; I10 Essential (primary) hypertension; E03.9 Hypothyroidism, unspecified
CPT/HCPCS: 36415; 80053; 80061; 84443; 85025; G0103

== ENCOUNTER → 2021-07-18 11:04 | Outpatient (CLI) | payer OTHER, SELFPAY ==
--- NOTE | 2021-07-18 11:08 | DI.CT.S_ITS ---
PROCEDURE: CT SINUS SCREEN WO CON INDICATIONS: Chronic pansinusitis TECHNIQUE: Noncontrast 3.0 mm axial images acquired from the frontal sinuses to the mid-sella, with coronal and sagittal reformats. For radiation dose reduction, the following was used: automated exposure control, adjustment of mA and/or kV according to patient size. COMPARISON: None. Maxillary Sinuses: Maxillary mucosal thickening measures up to 6 mm. There is obstruction of both ostiomeatal units. No air-fluid levels No significant Apollo ethmoid air cells present along the inferior medial orbital pritchett. Sphenoid Sinuses: Mucosal thickening along the floor of the sphenoid sinus measures up to 3 mm. Right ethmoidal recess appears obstructed. Sphenoid pneumatization pattern is presellar, extending to the anterior margin of the sella. No [place] or sphenoethmoidal air cells present. The optic nerve is well covered. Frontal Sinuses: Mild mucosal thickening in the floor of the frontal sinuses measures up to 3 mm. Frontal sinuses are recesses appear obstructed. Ethmoid Sinuses: Diffuse mucosal thickening present in the ethmoid sinus. The fovea ethmoidalis and cribriform plate are unremarkable. The lamina papyracea are both structurally intact. Lateral lamella are symmetric. Nasal Cavity and Septum: Nasal turbinates unremarkable without pneumatization. Cartilaginous and osseous components of the nasal septum intact and midline without perforation. Skull Base: The anterior cranial fossa and pituitary sella are unremarkable. No evidence of bony dehiscence. Both osseous orbits and contents are within normal limits. Prior nasal bone fracture noted. IMPRESSION: 1. Diffuse mucosal sinus disease involving the paranasal sinuses without osseous expansion or sclerosis. Approved by: Jose Kitchen M.D. on 07/18/2021 at 13:27
== END ==
PROVIDERS: PCP Internal Medicine; Referring Provider Otolaryngology; Visit Provider Otolaryngology
DX: J32.4 Chronic pansinusitis (principal); R43.8 Other disturbances of smell and taste
CPT/HCPCS: 70486

== ENCOUNTER → 2022-02-19 07:13 | Outpatient (CLI) | payer MEDICARE, SELFPAY ==
--- NOTE | 2022-02-19 | DI.US.S_ITS ---
PROCEDURE: US ABD AORTA ANEURYSM SCREEN INDICATIONS: SCREEN TECHNIQUE: Real time scanning was performed of the aorta and iliac arteries, with image documentation. COMPARISON: None. FINDINGS: Proximal aorta measures 2 cm. Mid aorta measures 1.7 cm. Distal aorta measures 1.4 cm. Right common iliac artery measures 0.9 cm. Left common iliac artery measures 1 cm. IMPRESSION: No abdominal aortic aneurysm. Dictated by: Modesto Manning M.D. on 02/19/2022 at 9:03 Approved by: Modesto Manning M.D. on 02/19/2022 at 9:04
== END ==
PROVIDERS: PCP Internal Medicine; Referring Provider Internal Medicine; Visit Provider Internal Medicine
DX: Z13.6 Encounter for screening for cardiovascular disorders (principal)
CPT/HCPCS: 76706